=== PATIENT | female | born 1995 | race Caucasian/White ===

== ENCOUNTER 2024-04-21 00:34 | Emergency (ER) | payer OTHER ==
[~2024-04-21] VITALS: Ht 170.1 cm
[2024-04-21] MEDS ORDERED: LORazepam 1 MG TAB PO ONE (00:55)
[2024-04-21 01:03] LABS: BASO % 0.4 % (0.0-1.0); EOS # 0.1 10*3/uL (0.0-0.4); EOS % 0.6 % (1.0-4.0); HEMATOCRIT 40.2 % (37.0-47.0); MEAN CELL VOLUME 93.1 fl (81.0-99.0); MEAN CORPUSCULAR HGB CONC 33.3 g/dl (33.0-37.0); MEAN PLATELET VOLUME 8.8 fl (9.6-12.3); MONO # 0.5 10*3/uL (0.1-1.0); MONO % 4.7 % (3.0-9.0); NEUT # 6.2 10*3/uL (2.3-7.9); NEUT % 65.4 % (47.0-73.0); PLATELET COUNT AUTOMATED 452 10*3/uL (130-400); RED BLOOD COUNT 4.32 10*6/uL (4.10-5.10); RED CELL DISTRI WIDTH 11.9 % (0-14.5); WHITE BLOOD COUNT 9.5 10*3/uL (4.8-10.8)
[2024-04-21 01:13] LABS: BILIRUBIN Negative (Negative); BLOOD Negative (Negative); CLARITY Cloudy (Clear); COLOR Yellow (Yellow); GLUCOSE Negative (Negative); KETONE Trace (Negative); LEUKO ESTERASE Negative (Negative); NITRITE Negative (Negative); SPECIFIC GRAVITY >= 1.030 (1.001-1.030)
[2024-04-21 01:20] LABS: URINE AMPHETAMINES Negative (1000ng/ml); URINE BARBITURATES Negative (200ng/ml); URINE BENZODIAZEPINES Negative (200ng/ml); URINE CANNABINOIDS (THC) Positive (50ng/ml); URINE COCAINE Negative (300ng/ml); URINE METHADONE Negative (300ng/ml); URINE OPIATES Negative (300ng/ml); URINE PHENCYCLIDINE Negative (25ng/ml)
[2024-04-21 01:21] LABS: BACTERIA TRACE; MUCOUS TRACE
[2024-04-21 01:22] LABS: ETHYL ALCOHOL 3.3 mg/dl (<3); POTASSIUM 4.1 mmol/L (3.4-5.1)
[2024-04-21] MEDS ORDERED: LORazepam 0.5 MG TAB PO ONE (02:35)
== END 2024-04-21 02:47 | disposition home or self-care (01) ==
LOC: ED 00:34
PROVIDERS: Internal Medicine
DX: F41.9 Anxiety disorder, unspecified (principal); R00.0 Tachycardia, unspecified; Z79.899 Other long term (current) drug therapy